=== PATIENT | male | born 1960 | race Caucasian/White ===

== ENCOUNTER 2019-05-08 17:11 | Emergency (ER) | payer OTHER ==
[~2019-05-08] VITALS: Ht 172.7 cm; Wt 142.4 kg
[2019-05-08 17:16] VITALS: Ht 172.7 cm; Wt 142.4 kg
[2019-05-08 20:35] VITALS: BP 160/74
== END 2019-05-08 21:04 | disposition home or self-care (01) ==
LOC: ED 17:11
DX: S29.012A Strain of muscle and tendon of back wall of thorax, initial encounter (principal); S39.012A Strain of muscle, fascia and tendon of lower back, initial encounter; E11.9 Type 2 diabetes mellitus without complications; E78.00 Pure hypercholesterolemia, unspecified; J45.909 Unspecified asthma, uncomplicated; X58.XXXA Exposure to other specified factors, initial encounter; Y93.89 Activity, other specified; Y92.89 Other specified places as the place of occurrence of the external cause; Y99.8 Other external cause status
CPT/HCPCS: 72072; J2270; Q0162